=== PATIENT | female | born 1945 | race Caucasian/White ===

== ENCOUNTER → 2024-06-01 08:14 | Outpatient (REF) | payer MEDICARE, OTHER, SELFPAY ==
[2024-06-01 09:49] LABS: % Basophils 1.1 % (0-2); % Eosinophils 2.8 % (0-6); % Immature Granulocytes 0.5 % (0-0.5); % Lymphocytes 29.6 % (20.5-51.1); % Monocytes 9.7 % (1.7-9.3); % Neutrophils 56.3 % (42.2-75.2); Absolute Basophils 0.1 10^3/uL (0-0.2); Absolute Eosinophils 0.2 10^3/uL (0-0.7); Absolute Lymphocytes 1.9 10^3/uL (1.2-3.4); Absolute Monocytes 0.6 10^3/uL (0.1-0.6); Absolute Neutrophils 3.6 10^3/uL (1.4-6.5); Hematocrit 34.6 % (37.0-47.0); Mean Corp Hgb Conc. 31.8 g/dL (33.0-37.0); Mean Corpuscular Hgb 28.1 pg (27.0-31.0); Mean Corpuscular Volume 88.5 fL (81.0-99.0); Mean Platelet Volume 10.3 fL (7.4-10.4); Nucleated Red Blood Cells % 0 %; Platelet Count 344 10^3/uL (130-400); Red Blood Cell Count 3.91 10^6/uL (4.20-5.40); Red Cell Dist. Width 13.5 % (11.5-14.5); White Blood Cell Count 6.3 10^3/uL (4.8-10.8)
[2024-06-01 10:10] LABS: ALT (SGPT) 14 U/L (0-35); AST (SGOT) 17 U/L (14-36); Albumin 4.5 g/dl (3.5-5.0); Alkaline Phosphatase 79 U/L (38-126); Blood Urea Nitrogen 22 mg/dl (7-17); Calcium 10.3 mg/dl (8.4-10.2); Carbon Dioxide 24 mmol/L (22-30); Chloride 105 mmol/L (98-107); Glucose 141 mg/dl (70-99); HDL Cholesterol 45 mg/dl; LDL Cholesterol, Calculated 62 mg/dl; Potassium 4.4 mmol/L (3.5-5.1); Sodium 143 mmol/L (135-145); Total Bilirubin 0.3 mg/dl (0.2-1.3); Total Cholesterol 151 mg/dl (50-199); Total Protein 7.2 g/dl (6.3-8.2); Triglyceride 220 mg/dl (10-149); Very Low Density Lipoprotein 44 mg/dl (0-30); eGFR 35.67
[2024-06-01 10:24] LABS: Free T4 1.41 ng/dl (0.78-2.19); Vitamin D, 25-OH*** 42.4 ng/mL (30-80)
[2024-06-01 10:37] LABS: TSH 5.98 uIU/ml (0.47-4.68)
[2024-06-01 11:03] LABS: Microalbumin, Random Urine 6.5 mg/dl (0.6-1.7); Microalbumin/creatinine Ratio 158.9 mg/g
[2024-06-01 11:13] LABS: Folate 7.8 ng/ml (2.76-20); Vitamin B12 320 pg/ml (239-931)
== END ==
LOC: HWLAB 08:14
PROVIDERS: ATTENDING PHYSICIAN Internal Medicine
DX: E53.8 Deficiency of other specified B group vitamins (principal); R94.6 Abnormal results of thyroid function studies; E55.9 Vitamin D deficiency, unspecified; E11.9 Type 2 diabetes mellitus without complications; N18.32 Chronic kidney disease, stage 3b; E78.5 Hyperlipidemia, unspecified
CPT/HCPCS: 80053; 80061; 82043; 82306; 82570; 82607; 82746; 83036; 84439; 84443; 85025

== ENCOUNTER → 2024-07-06 08:13 | Outpatient (REF) | payer MEDICARE, OTHER, SELFPAY | LOC: HWRCS 08:13 | PROVIDERS: ATTENDING PHYSICIAN Nuclear Medicine Nuclear Cardiology; FAMILY PHYSICIAN Internal Medicine | DX: I48.0 Paroxysmal atrial fibrillation (principal) | CPT/HCPCS: 93306 ==

== ENCOUNTER → 2025-03-29 08:28 | Outpatient (REF) | payer MEDICARE, OTHER, SELFPAY | LOC: HWRAD 08:28 | PROVIDERS: ATTENDING PHYSICIAN Internal Medicine | DX: R05.3 Chronic cough (principal) | CPT/HCPCS: 71046 ==

== ENCOUNTER 2025-09-29 12:44 | Emergency (ER) | payer MEDICARE, OTHER, SELFPAY ==
[2025-09-29 12:48] VITALS: BP 147/52
--- NOTE | 2025-09-29 14:00 | ED.GENMED ---
History of Present Illness
General
Chief Complaint: Musculo-Skeletal Complaint
Time Seen by Provider: 09/29/25 13:24
History of Present Illness
History of Present Illness:
Ainsley is a 79-year-old female with past medical history of A-fib on Xarelto and amiodarone, GERD, right knee replacement and subsequent right femur fracture requiring hardware implantation presents complaining of right knee pain that began this
morning after getting out of bed. Describes the pain as sharp on the superior medial aspect of her knee. She does note that she was scheduled to have a screw removed from this area of her knee and believes the screw may have come loose.
Phy Exam
General Physical Exam
General Presentation: well appearing and no apparent distress
General Skin: warm and dry
General Habitus: normal
General Mental: alert
General Hydration: appears well hydrated
ENT Exam
ENT Exam: EOMI, pharynx normal, neck supple and normocephalic
Eye Exam
Eye Exam: PERRL, cornea clear and conjunctiva normal
Cardiovascular Exam
Cardiovascular Exam: regular rate/rhythm, no edema, no murmur and normal peripheral pulses
Pulmonary Exam
Pulmonary Exam: lungs clear, no respiratory distress, no rales, no crackles, no rhonchi, no stridor, no wheezing and no cough
Gastrointestinal Exam
Gastrointestinal Exam: normal bowel sounds, non tender, soft, no organomegaly, no pulsatile mass and non distended
Neurological Exam
Neurological Exam: alert, oriented x3, no motor deficits and speech normal
Musculoskeletal Exam
Musculoskeletal Exam: full ROM, no edema and other (Tenderness and swelling noted to left superior medial knee, and no erythema or ecchymosis)
Skin Exam
Skin Exam: normal color, warm/dry, no rash and no petechia
Psychiatric Exam
Psychiatric Exam: normal mood/affect
Course
Orders/Labs/Results
Orders:
Orders
09/29/25 13:55
CR Knee- Right 4 Or More View* Urgent
Reason For Exam: pain, prior replacement
09/29/25 14:02
Acetaminophen [Tylenol] 1,000 mg .ROUTE .STK-MED ONE
09/29/25 14:04
Acetaminophen [Tylenol] 1,000 mg PO NOW STA
09/29/25 17:29
CT Lower Ext W/o Iv Cont Rt Urgent
Comment:
Reason For Exam: knee pain, evaluate for acute fracture
09/29/25 18:36
Oxycodone [Roxicodone] 2.5 mg PO NOW STA
Vital Signs
Initial and Last Documented VS:
Initial Vital Signs
Temp Pulse Resp BP Pulse Ox
36.8 C 74 19 147/52 100
09/29/25 12:48 09/29/25 12:48 09/29/25 12:48 09/29/25 12:48 09/29/25 12:48
Last Documented Vital Signs
Temp Pulse Resp BP Pulse Ox
36.8 C 74 16 147/52 100
09/29/25 12:48 09/29/25 12:48 09/29/25 18:11 09/29/25 12:48 09/29/25 14:04
MDM/Problems Addressed
Differential Diagnosis Includes:
Right knee x-ray obtained read by radiology as 'likely represent distal femoral partial/incomplete fracture healing. Superimposed recurrent fracture cannot be entirely excluded. Direct Comparison with any prior examination (not available at this
facility) would be necessary. The head of the medial screw in the distal femur has migrated, projecting beyond the cortical margin of the femur, and may be loose.' She reports minimal improvement in her pain although swelling does appear improved
after ice and Tylenol. Discussed case with orthopedics recommending CT to further evaluate for any acute fracture. If no acute fracture would recommend ambulating with assistive device and follow-up with her orthopedic surgery team.
CT results with no acute fracture and chronic expected findings. He was reviewed by orthopedic surgery who states that they do not feel they would much to add to the patient's case and that she should follow-up with her known orthopedic surgeon.
Patient was offered additional pain medications multiple times but declined. She was able to ambulate with a walker and will be discharged home. Return precautions discussed. She will follow-up with her orthopedic surgeon and if unable to I
provided the name of our orthopedic team here for follow-up
*Pulse Oximetry
SaO2: 100
Patient hypoxic: no
*Critical Care Note
Total Time (30-74mins, 75-104mins- exclusive of procedures): Not Applicable
ED Attending Note
-
Portions of this chart may have been created with voice recognition software.� Occasional wrong word or��sound alike� substitutions may have occurred due to the inherent limitations of voice recognition software.
Discharge Plan
Departure
Patient Disposition: Home (Routine Discharge)
Date of Disposition: 09/29/25
Time of Disposition: 19:44
Patient with high blood pressure during this ER visit?: No
Discharge Problem:
Acute knee pain, History of knee replacement procedure of right knee
Instructions: Knee pain - ED (DC)
Prescriptions:
No Action
amiodarone [Pacerone] 200 MG tablet
100 mg PO HS
metformin 500 MG tablet extended release 24 hr
500 mg PO DAILY@1800
rivaroxaban [Xarelto] 15 MG tablet
15 mg PO QPM
atorvastatin 40 MG tablet
40 mg PO DAILY
apremilast [Otezla] 30 MG tablet
30 mg PO DAILY
metoprolol succinate 25 MG tablet extended release 24 hr
25 mg PO DAILY
acetaminophen 325 MG tablet
650 mg PO Q6HPRN PRN (Reason: mild pain/ fever>100.5F) 0RF
Antacid
1 dose sublingual PRN PRN (Reason: heartburn)
phenazopyridine 100 MG tablet
100 mg PO BID Qty: 20 0RF
cephalexin 500 MG capsule
500 mg PO BID Qty: 6 0RF
Rx Instructions:
start 01/02
Referrals:
Vidal Navarrete MD [Family Provider, Internal Medicine]
Activity Restrictions/Additional Instructions:
Seen in the ER for knee pain. X-ray and CT imaging does not show any acute fracture or injury to your knee. You should follow-up with your orthopedic surgeon regarding planned screw removal surgery. If you are unable to follow-up with him I
provided the name of our orthopedic team. Can continue to use Tylenol and lidocaine patches for pain.
Interventions
Interventions:
*General Assessment Last Done: 09/29/25 12:51
*Neglect/Abuse Screening Last Done: 09/29/25 12:51
*ED COVID-19 Vaccine History Last Done: 09/29/25 12:51
*ED Influenza Vaccine History Last Done: 09/29/25 12:51
[facility] Risk Assessment Tool Last Done: 09/29/25 14:22
*Risk Screen - Suicide (C-SSRS) Last Done: 09/29/25 12:51
ED-Musculoskeletal Assessment Last Done: 09/29/25 14:22
Discharge Date and Time
Print Language: SYRIAN
[2025-09-29] MEDS: TYLENOL 1000 MG PO ×2 (14:04→20:12)
[2025-09-29] MEDS: LIDOCAINE 4% PATCH 1 PATCH TOPICAL (19:53)
== END 2025-09-29 21:41 | disposition home or self-care (01) ==
LOC: EMR 12:44
PROVIDERS: EMERGENCY PHYSICIAN Emergency Medicine; FAMILY PHYSICIAN Internal Medicine
DX: M25.561 Pain in right knee (principal); Z96.651 Presence of right artificial knee joint; K21.9 Gastro-esophageal reflux disease without esophagitis; I48.91 Unspecified atrial fibrillation; Z79.01 Long term (current) use of anticoagulants
CPT/HCPCS: 99285; 73564; 73700